=== PATIENT | female | born 1995 | race Caucasian/White ===

== ENCOUNTER 2023-05-17 19:10 | Outpatient (RCR) | payer BC, SELFPAY | END 2024-04-21 08:15 | disposition home or self-care (01) | LOC: LAB 19:10 | PROVIDERS: Visit Provider Physician Assistant Medical | DX: O26.891 Other specified pregnancy related conditions, first trimester (principal) ==

== ENCOUNTER 2023-06-01 18:55 | Outpatient (CLI) | payer BC, SELFPAY ==
[2023-06-08 13:17] LABS: Progesterone, HPLC-MS/MS 49.24 ng/mL
== END 2023-06-01 18:56 | disposition home or self-care (01) ==
PROVIDERS: PCP Physician Assistant Medical; Visit Provider Physician Assistant Medical
DX: O26.891 Other specified pregnancy related conditions, first trimester (principal)
CPT/HCPCS: 36415; 84144